=== PATIENT | male | born 1990 | race Caucasian/White ===

== ENCOUNTER 2017-01-26 20:11 | Emergency (ER) | payer SELFPAY ==
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
[2017-01-26] MEDS ORDERED: HYDROcodone/ACETAMINOPHEN 1 EACH TABLET PO ONE (21:13)
[2017-01-26] MEDS ORDERED: HYDROcodone/ACETAMINOPHEN 1 EACH TABLET ONE (21:17)
[2017-01-26 21:46] VITALS: BP 123/73
--- OUTSIDE RECORDS SUMMARY | 2017-01-26 22:12 | XMS REPORT | Continuity of Care Document ---
:1990 Author Organization [facility] ([facility]) Address [address] [place] [address] Phone [phone] Care Team Providers Name Role Phone Abram Sol Primary Care Provider [phone] Source Comments This disclosure is being made pursuant to the Care Everywhere program, applicable federal and state laws, and may not contain all informaitonavailable regarding this patient.[facility] ([facility]) Active Allergies and Adverse Reactions Not on File Current Medications Not on file Active Problems Not on file Social History Tobacco Use Types Packs/Day Years Used Date Never Assessed Last Filed Vital Signs Vital Sign Reading Time Taken Blood Pressure 121/70 10/17/2015 4:00 PM [employer] Pulse 58 10/17/2015 4:00 PM [employer] Temperature 36.7 C (98.1 F) 10/17/2015 4:00 PM [employer] Respiratory Rate 12 10/17/2015 4:00 PM [employer] Height - - Weight - - Body Mass Index - - Oxygen Saturation 98% 10/17/2015 4:00 PM [employer] Plan of Care Health Maintenance Due Date Last Done Comments Hepatitis B Vaccine (1 of 3 - Primary Series) 1990 HPV Vaccine (1 of 3 - Male 3 Dose Series) 2001 Tdap Vaccine 2001 Lipid Disorder Screening 2008 MMR Vaccine 2008 Td Vaccine 2008 Varicella Vaccine (1 of 2 - Adult - No Evidence of 2008 Immunity) Influenza Vaccine: Seasonal (#1) 06/08/2016 Results from Last 3 Months Not on file
== END 2017-01-26 21:27 | disposition home or self-care (01) ==
LOC: ER 20:11
PROC: 2W3HX1Z Immobilization of Left Thumb using Splint (ICD-10-PCS; principal; 2017-01-26)
DX: S62.502A Fracture of unspecified phalanx of left thumb, initial encounter for closed fracture (principal); F17.210 Nicotine dependence, cigarettes, uncomplicated; V87.8XXA Person injured in other specified noncollision transport accidents involving motor vehicle (traffic), initial encounter; Y92.009 Unspecified place in unspecified non-institutional (private) residence as the place of occurrence of the external cause